=== PATIENT | male | born 1955 | race Caucasian/White ===

== ENCOUNTER 2022-04-14 06:55 | Emergency (ER) | payer MEDICAID, OTHER ==
[~2022-04-14] VITALS: Ht 170.2 cm; Wt 108.9 kg
[2022-04-14 07:08] VITALS: BP_SYST 148
--- NOTE | 2022-04-14 07:12 | NUR ---
Placed in room 8 . Placed on telemetry monitor, blood pressure machine and pulse oximeter. To gown for exam. Side rails up. Report given to SANGITA MONTENEGRO.
--- NOTE | 2022-04-14 07:15 | NUR ---
PT CAME IN FROM HOME C/O FEELING WEAK X 4 DAYS WITH COUGH AND CONGESTION. STATES HE HAS HAD FEVERS AT HOME. DENIES ANY PAIN UPON ARRIVAL. STATES HE TOOK AT HOME COVID TESTS YESTERDAY AND TWO DAYS AGO WHICH CAME BACK NEGATIVE. PT IS [id number], VSS
--- NOTE | 2022-04-14 07:35 | NUR ---
DR RODARTE AT BEDSIDE FOR EVALUATION
[2022-04-14] MEDS ORDERED: IPRATROPIUM/ALBUTEROL SULFATE 3 ML AMPUL.NEB (DUONEB) INH ONE (07:45)
[2022-04-14] MEDS ORDERED: NACL 0.9% 1,000 ML IV ONE (07:45)
[2022-04-14] MEDS ORDERED: ONDANSETRON HCL 4 MG/2 ML VIAL IVP ONE (07:45)
--- NOTE | 2022-04-14 07:45 | NUR ---
RT AT THE BEDSIDE
[2022-04-14] MEDS ORDERED: IPRATROPIUM/ALBUTEROL SULFATE 3 ML AMPUL.NEB (DUONEB) ONE (07:46)
--- NOTE | 2022-04-14 08:00 | NUR ---
# 20 gauge angiocath placed to RFA. Use of asceptic technique. Opsite placed over site. Blood return noted. Blood for lab drawn from site. Flushed with 10 cc of normal saline. No evidence of infiltration noted. Patient tolerated well.
[2022-04-14 08:18] LABS: BASOPHILS % (AUTO) 0.6 % (0.0-2.0); EOSINOPHILS % (AUTO) 0.1 % (0.0-4.0); HEMATOCRIT 43.9 % (36-54); HEMOGLOBIN 14.8 g/dL (14.0-18.0); LYMPHOCYTES # (AUTO) 0.8 K/uL (1.0-5.5); LYMPHOCYTES % (AUTO) 13.1 % (20.5-51.5); MEAN CORPUSCULAR HEMOGLOBIN 29 pg (27-31); MEAN CORPUSCULAR HGB CONC 34 % (32-36); MEAN CORPUSCULAR VOLUME 85 fL (79.0-98.0); MONOCYTES # (AUTO) 0.5 K/uL (0.0-1.0); MONOCYTES % (AUTO) 9.2 % (1.7-9.3); NEUTROPHILS # (AUTO) 4.4 K/uL (1.8-7.7); PLATELET COUNT (AUTO) 159 K/uL (130-430); RED BLOOD CELL COUNT(AUTO) 5.19 MIL/uL (4.2-6.2); RED CELL DISTRIBUTION WIDTH 14.9 % (9.0-15.0); WHITE BLOOD COUNT (AUTO) 5.7 K/uL (4.8-10.8)
[2022-04-14 08:21] LABS: ANION GAP 11 (5-15); CALCIUM 8.3 mg/dL (8.4-11.0); CHLORIDE 104 mmol/L (98-107); CREATININE 1.23 mg/dL (0.55-1.30); GLUCOSE 108 mg/dL (70-99); POTASSIUM 3.9 mmol/L (3.5-5.1); SODIUM SERUM 141 mmol/L (136-145); UREA NITROGEN, BLOOD 10 mg/dL (8-21)
--- NOTE | 2022-04-14 08:23 | NUR ---
RT AT THE BEDSIDE
[2022-04-14 08:27] LABS: GFR AFRICAN AMERICAN 76 mL/min (>90)
--- NOTE | 2022-04-14 08:29 | NUR ---
PT PLACED ON 2LNC FOR COMFORT 02 SAT 97%
[2022-04-14 08:30] LABS: ALANINE AMINOTRANSFERASE 29 U/L (12-78); ALBUMIN 3.6 g/dL (3.4-4.8); ASPARTATE AMINOTRANSFERASE 25 U/L (10-37); TOTAL BILIRUBIN 0.3 mg/dL (0.0-1.0)
--- NOTE | 2022-04-14 09:00 | NUR ---
PT REQUESTING WATER, ABLE TO TOLERATE NO N/V
[2022-04-14] MEDS ORDERED: ALBMDI INH (09:54)
[2022-04-14] MEDS ORDERED: PRED50TA PO (09:54)
[2022-04-14] MEDS ORDERED: OSEL75CA PO (09:54)
[2022-04-14 10:17] VITALS: BP_SYST 163
--- NOTE | 2022-04-14 10:19 | NUR ---
Patient given written and verbal discharge instructions and verbalizes understanding. ER MD discussed with patient the results and treatment provided. Patient in stable condition. ID arm band removed. IV catheter removed intact and dressing applied, no active bleeding. Rx of VENTOLIN, TAMIFLU AND PREDNISONE given. Patient educated on pain management and to follow up with PMD. Pain Scale 0/10. Opportunity for questions provided and answered. Medication side effect fact sheet provided.
== END 2022-04-14 10:19 | disposition home or self-care (01) ==
LOC: SED 06:55
DX: J11.1 Influenza due to unidentified influenza virus with other respiratory manifestations (principal); Z20.822 Contact with and (suspected) exposure to COVID-19
CPT/HCPCS: 36415; 71045; 80053; 83605; 84484; 85025; 87040; 93005; 94640; 96360; 99285